=== PATIENT | female | born 1980 | race Caucasian/White ===

== ENCOUNTER 2017-01-20 10:42 | Emergency (ER) | payer OTHER ==
[~2017-01-20] VITALS: Ht 162.6 cm; Wt 93.9 kg
[2017-01-20 11:34] LABS: BASOPHIL % 0.6 % (0-2); PLATELET COUNT 284 x10^3mcL (130-400); RED CELL DISTRIBUTION WIDTH 13.1 % (11.5-14.5)
[2017-01-20 11:42] LABS: CALCIUM 8.8 mg/dL (8.5-10.1); CARBON DIOXIDE 29.8 mmol/L (21-32); CHLORIDE SERUM 104 mmol/L (98-107); CREATININE SERUM 0.8 mg/dL (0.6-1.0); GFR1 > 60 mL/min; GLUCOSE SERUM 136 mg/dL (74-106); POTASSIUM SERUM 3.8 mmol/L (3.5-5.1); SODIUM SERUM 140 mmol/L (136-145)
[2017-01-20 11:47] LABS: ALBUMIN 3.7 g/dL (3.4-5.0); ALKALINE PHOSPHATASE 56 U/L (46-116); ALT/SGPT 47 U/L (14-59); AST/SGOT 19 U/L (15-37); BILIRUBIN TOTAL 0.4 mg/dL (0.20-1.00); TOTAL PROTEIN, SERUM 7.2 g/dL (6.4-8.2)
[2017-01-20 12:46] VITALS: BP 118/79
== END 2017-01-20 12:46 | disposition home or self-care (01) ==
LOC: ED 10:42
PROVIDERS: Emergency Medicine
DX: N39.0 Urinary tract infection, site not specified (principal); H66.91 Otitis media, unspecified, right ear; R03.0 Elevated blood-pressure reading, without diagnosis of hypertension
CPT/HCPCS: J8597

== ENCOUNTER 2017-06-09 09:32 | Inpatient (IN) | payer OTHER ==
[~2017-06-09] VITALS: Ht 162.6 cm; Wt 90.0 kg
--- NOTE | 2017-06-09 10:03 | NUR ---
PT AMBULATORY FROM TRIAGE TO RESTROOM.
--- NOTE | 2017-06-09 10:39 | NUR ---
PT MEDICATED PER EMAR ORDERS. PT EDUCATED ON MEDICATION PRIOR TO ADMINISTRATION AND VERBALIZED UNDERSTANDING. PT STS SHE HAS A RIDE HOME AND IS AWARE OF NOT BEING ABLE TO DRIVE AFTER RECEIVING ONE OF THE MEDICATIONS.
[2017-06-09 11:13] LABS: CALCIUM 8.8 mg/dL (8.5-10.1); CARBON DIOXIDE 28.6 mmol/L (21-32); CHLORIDE SERUM 101 mmol/L (98-107); CREATININE SERUM 0.7 mg/dL (0.6-1.0); GFR1 > 60 mL/min; GLUCOSE SERUM 94 mg/dL (74-106); POTASSIUM SERUM 3.3 mmol/L (3.5-5.1); SODIUM SERUM 138 mmol/L (136-145)
[2017-06-09 11:24] LABS: BASOPHIL % 0.1 % (0-2); PLATELET COUNT 242 x10^3mcL (130-400); RED CELL DISTRIBUTION WIDTH 13.1 % (11.5-14.5)
--- NOTE | 2017-06-09 11:29 | NUR ---
PT LAYING ON GURNEY WITH LIGHTS OFF IN A POSITION OF COMFORT. PT STS HER PAIN IS STARTING TO GET BETTER. PT REMAINS ON MONITOR WITH CALL LIGHT IN REACH AND FAMILY AT BEDSIDE
--- NOTE | 2017-06-09 11:46 | NUR ---
PT MEDICATED PER EMAR ORDERS. PT EDUCATED ON MEDICATION PRIOR TO ADMINISTRATION AND VERBALIZED UNDERSTANDING. PT STS HER PAIN IS COMING BACK. DR ART MADE AWARE
--- NOTE | 2017-06-09 12:08 | NUR ---
PT MEDICATED PER EMAR ORDERS. PT EDUCATED ON MEDICATION PRIOR TO ADMINISTRATION AND VERBALIZED UNDERSTANDING.
--- NOTE | 2017-06-09 13:15 | NUR ---
PT HAS NORMAL SALINE INFUSING AT 150ML/HR PER MD ORDERS. PT MEDICATED WITH TORADOL 30MG SLOW IVP PER MD ORDERS. PT EDUCATED ON MEDICATION PRIOR TO ADMINISTRATION AND VERBALIZED UNDERSTANDING. PT REMAINS ON MONITOR WITH CALL LIGHT IN REACH.
--- NOTE | 2017-06-09 13:17 | NUR ---
X-RAY AT BEDSIDE
[2017-06-09 13:46] LABS: CHOLESTEROL/HDL RATIO 5.5; MAGNESIUM 1.8 mg/dL (1.8-2.4); PHOSPHOROUS 3.8 mg/dL (2.5-4.9)
[2017-06-09 13:53] LABS: UA SPECIFIC GRAVITY 1.015 (1.005-1.035); microscopic required? YES; urine erythrocyte TRACE (NEGATIVE)
[2017-06-09 13:56] LABS: T3 TOTAL 0.95 ng/mL
[2017-06-09 13:59] LABS: FREE T4 0.97 ng/dL (0.76-1.46); FREE THYROXINE INDEX 2.3 ug/dL (1.4-4.5); T4(THYROXINE) 6.7 ug/dL (4.7-13.3)
--- NOTE | 2017-06-09 14:03 | NUR ---
REPORT GIVEN TO MANINDER HERNANDEZ TO ASSUME CARE OF PT.
[2017-06-09 14:04] LABS: AMPHETAMINE QUAL UR NONE DETECTED (NEG <=1000)
[2017-06-09 15:43] VITALS: BP 123/81
--- NOTE | 2017-06-09 15:48 | NUR ---
RECEIVED PATIENT FROM ED VIA GUERNEY, PATIENT ALERT AND ORIENTED, TELE # 5 SR, IV ACCESS TO LFA WNL, C/O PAIN TO HEAD WILL MEDICATE ORDERED, ORIENTED PATIENT TO ROOM AND SURROUNDINGS, BED IN LOW POSITION, BED RAILS UP X 2, CALL LIGHT WITHIN REACH, WILL ENDORSE CARE TO PRIMARY NURSE JITENDRA HERNANDEZ
--- NOTE | 2017-06-09 16:15 | NUR ---
PT RESTING IN BED COMFORTABLY.PT STATED SHE STILL HAS HEADACHE ,2/10 BUT TOLERABLE. NO NEED OF PAIN MEDICINE NOW. WILL MONITOR.
--- NOTE | 2017-06-09 19:10 | NUR ---
PT STATED HER HEADACHE IS TOLERABLE THIS TIME.MORPHINE HELPED. STABLE. GAVE REPORT TO NEXT SHIFT NURSE
--- NOTE | 2017-06-09 20:07 | NUR ---
Awake and verbally responsive. No resp.distress noted. Denies pain at this time. Denies n/v. Ambulatory with steady gait. SCD applied while in bed. Normal sinus rhythm. Will cont.to monitor. Call light within reach.
[2017-06-09 22:50] VITALS: BP 135/94
--- NOTE | 2017-06-10 04:23 | NUR ---
Afebrile. No significant change in condition noted. Pain controlled. No n/v noted. In no apparent distress.
[2017-06-10 06:46] VITALS: BP 110/56
[2017-06-10 07:13] LABS: CALCIUM 8.3 mg/dL (8.5-10.1); CHLORIDE SERUM 104 mmol/L (98-107); CREATININE SERUM 0.6 mg/dL (0.6-1.0); GFR1 > 60 mL/min; GLUCOSE SERUM 95 mg/dL (74-106); PHOSPHOROUS 3.5 mg/dL (2.5-4.9); POTASSIUM SERUM 3.6 mmol/L (3.5-5.1); SODIUM SERUM 138 mmol/L (136-145)
--- NOTE | 2017-06-10 07:20 | NUR ---
RECEIVED PATIENT SLEEPING, NO SIGN OF PAIN OR DISTRESS AT THIS TIME. BREATHING EVEN AND UNLABORED.
[2017-06-10 07:39] LABS: PLATELET COUNT 217 x10^3mcL (130-400); RED CELL DISTRIBUTION WIDTH 13.1 % (11.5-14.5)
--- NOTE | 2017-06-10 08:20 | NUR ---
PATIENT AOX4, C/O HEADACHE, STATES TORADOL GIVEN EARLIER WAS EFFECTIVE BUT NOW HEADACHE BACK THROBBING IN NATURE 05/07. STATES MILD PAIN TO EAR AND THROAT SORE. NO DRAINAGE NOTED TO EARS. PERRLA NOTED. TELE 5, DENIES CP. PERIPHERAL PULSES PALPABLE, NO EDEMA, SCD'S IN PLACE. LUNGS CTA, NO RESP DISTRESS NOTED ON RA. BOWEL SOUNDS ACTIVE, LAST BM STATED 2 DAYS AGO NORMAL, DENIES DIARRHEA OR CONSTIPATION, DENIES N/V. SKIN INTACT. IV ACCESS TO LFA RUNNING NS INFUSING WELL SITE WNL. CALL LIGHT WITHIN REACH.
[2017-06-10 09:27] VITALS: BP 119/81
--- NOTE | 2017-06-10 09:40 | NUR ---
ROBAXIN 100MG SLOW IVP ORDERED FOR HEADACHE. GIVEN SLOWLY 2MIN. WILL CONT TO MONITOR.
[2017-06-10 10:02] LABS: BAND NEUTROPHIL 1 % (0-10); BASOPHIL 0 % (0-2); MONOCYTE 13 % (0-7); SEGMENTED NEUTROPHILS 63 % (37-75)
[2017-06-10 10:03] LABS: PLATELET MORPHOLOGY PLATELETS NORMAL
--- NOTE | 2017-06-10 13:01 | NUR ---
TORADOL GIVEN FOR HEADACHE PAIN 04/06. WILL CONT TO MONITOR. FAMILY MEMBER AT BEDSIDE.
[2017-06-10 13:49] VITALS: BP 125/87
--- NOTE | 2017-06-10 16:35 | NUR ---
PATIENT REQUESTING FOR PAIN MEDICINE FOR HEADACHE. TORADOL NOT DUE YET, DR ROBERTS CALLED. ROBAXIN PO ORDERED AND GIVEN. WILL CONT TO MONITOR.
[2017-06-10 16:51] VITALS: BP 133/84
--- NOTE | 2017-06-10 18:15 | NUR ---
PATIENT STATES ROBAXIN PO EFFECTIVE FOR HEADACHE. VISITOR AT BEDSIDE. DENIES ANY DISCOMFORT AT THIS TIME. NO ACUTE DISTRESS NOTED. IV SITE WNL. WILL CONT TO MONITOR AND ENDORSE TO NOC NURSE.
--- NOTE | 2017-06-10 19:33 | NUR ---
REC'D PT FROM DAY NURSE. AAOX4. LAYING IN BED COMFORTABLY. NO ACUTE DISTRESS NOTED. TELE #5. LUNG SOUNDS ARE CTA. ON RA. NO SOB. NO N/V/D. BREATHING EVEN AND UNLABORED. ABD IS ACTIVE. NO EDEMA NOTED. IV INTACT AND PATENT. BED IN LOWEST POSITION. CALL LIGHT WITHIN REACH. FAMILY AT BEDSIDE. WILL PROCEED TO THE PLAN OF CARE.
--- NOTE | 2017-06-10 19:46 | NUR ---
PT IS C/O OF PAIN 05/07. WILL MEDICATE PER EMAR.
--- NOTE | 2017-06-10 21:12 | NUR ---
PT IS C/O OF HEADACHE 07/07. WILL MEDICATE PER EMAR.
[2017-06-10 21:23] VITALS: BP 119/79
--- NOTE | 2017-06-10 23:15 | NUR ---
PT IS C/O OF SEVERE HEADACHE 07/07. WILL MEDICATE PER EMAR.
--- NOTE | 2017-06-10 23:54 | NUR ---
ROUNDS MADE. PT IS CURRENTLY ASLEEP WITH EYES CLOSED. NO DISTRESS NOTED AT THIS TIME. NO SOB. BREATHING EVEN AND UNLABORED. IV INTACT AND PATENT. WILL CONT TO MONITOR.
--- NOTE | 2017-06-11 03:52 | NUR ---
ROUNDS MADE. PT IS CURRENTLY ASLEEP AND RESTING QUIETLY. NO DISTRESS NOTED AT THIS TIME. NO SOB. BREATHING EVEN AND UNLABORED. IV INTACT AND PATENT. WILL CONT TO MONITOR.
--- NOTE | 2017-06-11 05:39 | NUR ---
PT C/O OF FEELING NAUSEOUS. WILL MEDICATE PER EMAR.
[2017-06-11 05:44] VITALS: BP 106/77
[2017-06-11 06:04] LABS: BASOPHIL % 0.5 % (0-2); PLATELET COUNT 229 x10^3mcL (130-400)
--- NOTE | 2017-06-11 06:15 | NUR ---
PT SLEPT PERIODICALLY THROUGHOUT THE NIGHT. NO DISTRESS OR SIGNIFICANT CHANGES NOTED AT THIS TIME. NO SOB. BREATHING EVEN AND UNLABORED. ALL NEEDS MET AND ATTENDED TO. MEDICATED PER EMAR. IV INTACT AND PATENT INFUSING WELL. WILL CONT TO MONITOR.
[2017-06-11 06:17] LABS: CALCIUM 8.3 mg/dL (8.5-10.1); CARBON DIOXIDE 30.8 mmol/L (21-32); CHLORIDE SERUM 104 mmol/L (98-107); CREATININE SERUM 0.6 mg/dL (0.6-1.0); GFR1 > 60 mL/min; GLUCOSE SERUM 98 mg/dL (74-106); PHOSPHOROUS 4.2 mg/dL (2.5-4.9); POTASSIUM SERUM 3.7 mmol/L (3.5-5.1); SODIUM SERUM 141 mmol/L (136-145)
--- NOTE | 2017-06-11 06:22 | NUR ---
REC'D CALL FROM LAB, PT WBC 3.8. DR. TALAMANTES MADE AWARE.
--- NOTE | 2017-06-11 06:38 | NUR ---
WILL ENDORSE ALL CARE TO ONCOMING NURSE.
--- NOTE | 2017-06-11 07:50 | NUR ---
PATIENT RECEIVED A/O, ABLE TO MAKE NEEDS KNOWN. C/O OF HEADACHE PAIN 9/10 POSTERIOR. 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 LUNGS CTA, NO RESP DISTRESS NOTED ON RA. TELE [address], DENIES CP. PERIPHERAL PULSES PALPABLE, NO EDEMA, SCD'S IN PLACE. BOWEL SOUNDS ACTIVE, DENIES ANY GI DISCOMFORT. SKIN INTACT. IV ACCESS TO LFA RUNNING NS INFUSING WELL SITE WNL. CALL LIGHT WITHIN REACH. WILL MEDICATE HEADACHE PAIN.
--- NOTE | 2017-06-11 08:20 | NUR ---
TORADOL IV GIVEN FOR HEADACHE PAIN. WILL CONT TO MONITOR.
--- NOTE | 2017-06-11 09:15 | NUR ---
DR ODONNELL AND TEAM AT BEDSIDE. INFORMED PATIENT OF CONTROLLING AND MANAGING HEADACHE PAIN WITH MEDICATION AND OMM, PATIENT WILL STAY TODAY. PATIENT VERBALIZED UNDERSTANDING AND COOPERATIVE WITH PLAN OF CARE.
[2017-06-11 09:39] VITALS: BP 129/81
--- NOTE | 2017-06-11 10:43 | NUR ---
PATIENT REQUESTED MD CHRISTIAN NOTIFIED, ORDER FOR SHOWER OK PLACED, PATIENT PREPARED AND ASSISTANCE OFFERED, BUT MOTHER AT BEDSIDE WILL ASSIST. IV SITE COVERED, OFF TELE, APPLICATION PROCESSOR MADE AWARE.
[2017-06-11 13:58] VITALS: BP 132/92
--- NOTE | 2017-06-11 14:00 | NUR ---
IV SITE OBSERVED TO BE LEAKING, PATIENT COMPLAINED OF THROBBING PAIN TO IV. D/C CATHETER INTACT, NEW IV STARTED ON RIGHT FOREARM, 22 G, 10 CC NS FLUSHED, PATIENT TOLERATED WELL, SITE WNL AND FLUIDS RESUMED.
[2017-06-11 16:23] VITALS: BP 112/60
--- NOTE | 2017-06-11 16:45 | NUR ---
BLOOD SUGAR WAS 158, EDUCATED PATIENT ABOUT INSULIN COVERAGE, PATIENT DECLINED INSULIN AT THIS TIME. PROVIDED EDUCATION MATERIALS FOR DIABETES AND DIET. FIORCET GIVEN FOR HEADACHE PAIN OF 6/10, WILL CONTINUE TO MONITOR.
--- NOTE | 2017-06-11 19:13 | NUR ---
REPORT GIVEN TO NOC NURSE PATIENT IN NO DISTRESS AT THIS TIME. HEADACHE PAIN AT 4/10 AND TOLERABLE. IV SITE WNL.
[2017-06-11 19:25] VITALS: BP 113/70
--- NOTE | 2017-06-11 19:25 | NUR ---
RECEIVED PT AWAKE ALERT AND VERBALLY RESPONSIVE.C/O HEADACHE 01/05 TO THROBBING PAIN,VERBALIZED PAIN MUCH BETTER TODAY.ROBAXIN 500 MG PO ADMINISTERED.DISCUSSED PAIN MGT. PLAN TONIGHT AND AGREEABLE.DENIES CHESTPAIN.BP 113/70 MMHG,HR 72.COMFORT MEASURES RENDERED.WILL CONTINUE TO MONITOR.
--- NOTE | 2017-06-11 23:00 | NUR ---
PT STILL AWAKE ME 4/10 TO THROBBING PAIN.FIORICET 1 TAB PO ADMINISTERED.COMFORT MEASURES RENDERED.WILL CONTINUE TO MONITOR.
--- NOTE | 2017-06-12 05:05 | NUR ---
PT SLEPT WITH INTERVALS.MEDICATED WITH FIORICET 1 TAB AND ROBAXIN 500 MG PO X2 FOR HEADACHE WITH GOOD RELIEF.NM 4/10 MOST OF THE NIGHT.NO ASE NOTED FROM ROCEPHIN IV ATB AND ACYCLOVIR IVPB.ALL NEEDS MET.WILL CONTINUE TO MONITOR.
[2017-06-12 05:42] VITALS: BP 108/72
--- NOTE | 2017-06-12 05:54 | NUR ---
P MA 01/05 VERBALIZED FEELING MUCH BETTER FROM 07/07 WHEN SHE CAME IN AND NOW @ 01/05.FIORICET 1 TAB PO ADMINISTERED.COMFORT MEASURES RENDERED.WILL CONTINUE TO MONITOR
[2017-06-12 06:29] LABS: BASOPHIL % 0.4 % (0-2); PLATELET COUNT 283 x10^3mcL (130-400); RED CELL DISTRIBUTION WIDTH 12.9 % (11.5-14.5)
[2017-06-12 06:37] LABS: CALCIUM 9.1 mg/dL (8.5-10.1); CARBON DIOXIDE 29.5 mmol/L (21-32); CHLORIDE SERUM 102 mmol/L (98-107); CREATININE SERUM 0.6 mg/dL (0.6-1.0); GFR1 > 60 mL/min; GLUCOSE SERUM 112 mg/dL (74-106); MAGNESIUM 1.8 mg/dL (1.8-2.4); PHOSPHOROUS 4.5 mg/dL (2.5-4.9); POTASSIUM SERUM 3.5 mmol/L (3.5-5.1); SODIUM SERUM 140 mmol/L (136-145)
--- NOTE | 2017-06-12 08:00 | NUR ---
A/A/OX3; CLEAR SPEECH. C/O HEADACHE ON 01/05. FIORICET 1 TAB PO GIVEN AT 0532 BY NOC NURSE. TELE #5 = SR; HR = 66. NO CHEST PAIN. NO RESP DISTRESS ON RA. TOLERATED CCHO DIET BREAKFAST. NO N/V. NO ABD PAIN. IVF OF NS 130CC/H RINFUSING WELL. IV SITE TO RFA INTACT. NO REDNESS/SWELLING. AMBULATORY. CALL LIGHT IN REACH.
--- NOTE | 2017-06-12 08:45 | NUR ---
DR. ODONNELL AND MEDICAL TEAM MADE MORNING ROUND. PLAN OF CARE DISCUSSED WITH PATIENT, INCLUDED WITH DISCHARGE TO HOME TODAY. PATIENT AGREED WITH PLAN OF CARE.
[2017-06-12 09:21] VITALS: BP 123/83
[2017-06-12] MEDS ORDERED: LEVAQUIN750 MG PO (10:11)
[2017-06-12] MEDS ORDERED: LAC PO (10:12)
[2017-06-12] MEDS ORDERED: FIORICET1 CAP PO (10:13)
[2017-06-12 10:42] VITALS: BP 123/83
--- NOTE | 2017-06-12 11:46 | NUR ---
STATED HEADACHE 01/05. FIORICET 1 TAB PO GIVEN.
--- NOTE | 2017-06-12 12:10 | NUR ---
STATED HEADACHE DOWN TO 310. D/C TO HOME PER ORDER. INSTRUCTION GIVEN. IV D/C'D. CONDITION STABLE.
== END 2017-06-12 12:10 | disposition home or self-care (01) | DRG 50 ==
LOC: ED 09:32 → DU 13:01
PROVIDERS: Emergency Medicine; ADMIT Family Medicine
DX: G03.9 Meningitis, unspecified (principal); E83.51 Hypocalcemia; N39.0 Urinary tract infection, site not specified; H92.01 Otalgia, right ear; E11.9 Type 2 diabetes mellitus without complications; E87.6 Hypokalemia; E78.5 Hyperlipidemia, unspecified; Z53.29 Procedure and treatment not carried out because of patient's decision for other reasons; R31.9 Hematuria, unspecified; E66.3 Overweight; Z68.34 Body mass index [BMI] 34.0-34.9, adult
CPT/HCPCS: 82962; 83880; 84439; 86788; 86789; J0133; J0696; J0780; J1100; J1885; J2270; J2405; J2800; J3010; J7030; Q9967

== ENCOUNTER 2017-09-21 09:20 | Emergency (ER) | payer OTHER ==
[~2017-09-21 09:20] MED LIST: FIORICET1 CAP PO; LAC PO; LEVAQUIN750 MG PO
[2017-09-21 12:53] VITALS: BP 127/91
== END 2017-09-21 12:53 | disposition home or self-care (01) ==
LOC: ED 09:20
DX: J20.9 Acute bronchitis, unspecified (principal); R09.1 Pleurisy
CPT/HCPCS: J1885; J3010; J7613; J7644; Q0162

== ENCOUNTER 2018-09-15 10:59 | Emergency (ER) | payer OTHER ==
[~2018-09-15] VITALS: Ht 162.6 cm; Wt 96.6 kg
[2018-09-15 11:20] VITALS: BP 143/101; Ht 162.6 cm; Wt 96.6 kg
[2018-09-15 11:48] LABS: UA SPECIFIC GRAVITY <=1.005 (1.005-1.035); microscopic required? YES; urine erythrocyte 2+ (NEGATIVE)
[2018-09-15 11:51] LABS: BASOPHIL % 0.7 % (0-2); PLATELET COUNT 336 x10^3mcL (130-400); RED CELL DISTRIBUTION WIDTH 13.6 % (11.5-14.5)
[2018-09-15 12:02] LABS: CARBON DIOXIDE 26.5 mmol/L (21-32); CHLORIDE SERUM 102 mmol/L (98-107); CREATININE SERUM 0.7 mg/dL (0.6-1.0); GFR1 > 60 mL/min; GLUCOSE SERUM 124 mg/dL (74-106); POTASSIUM SERUM 3.9 mmol/L (3.5-5.1); SODIUM SERUM 140 mmol/L (136-145)
== END 2018-09-15 12:58 | disposition home or self-care (01) ==
LOC: ED 10:59
PROVIDERS: Emergency Medicine
DX: N39.0 Urinary tract infection, site not specified (principal); Z98.890 Other specified postprocedural states
CPT/HCPCS: 36415; J1885

== ENCOUNTER 2019-03-18 10:58 | Emergency (ER) | payer OTHER ==
[~2019-03-18] VITALS: Ht 162.6 cm; Wt 97.5 kg
[2019-03-18 11:19] VITALS: Ht 162.6 cm; Wt 97.5 kg
[2019-03-18 12:36] VITALS: BP 140/98
== END 2019-03-18 12:36 | disposition home or self-care (01) ==
LOC: ED 10:58
DX: J98.01 Acute bronchospasm (principal); E66.9 Obesity, unspecified; Z68.36 Body mass index [BMI] 36.0-36.9, adult; Z98.890 Other specified postprocedural states
CPT/HCPCS: J2930; J7030; J7613; J7644

== ENCOUNTER 2019-11-09 21:37 | Emergency (ER) | payer OTHER ==
[~2019-11-09] VITALS: Ht 167.6 cm; Wt 113.4 kg
[2019-11-09 21:43] VITALS: Ht 167.6 cm; Wt 113.4 kg
[2019-11-09 23:39] VITALS: BP 131/90
== END 2019-11-09 23:39 | disposition home or self-care (01) ==
LOC: ED 21:37
DX: H66.91 Otitis media, unspecified, right ear (principal); J20.9 Acute bronchitis, unspecified; Z98.890 Other specified postprocedural states
CPT/HCPCS: J2270; Q0092; Q0162